=== PATIENT | female | born 1980 | race Caucasian/White ===

== ENCOUNTER 2020-10-17 16:08 | Emergency (ER) | payer OTHER ==
[~2020-10-17] VITALS: Ht 157.5 cm; Wt 52.2 kg
[~2020-10-17 16:08] MED LIST: ORPH100T PO
== END 2020-10-17 19:58 | disposition home or self-care (01) ==
LOC: ER 16:08
DX: M79.18 Myalgia, other site (principal); R51.9 Headache, unspecified

== ENCOUNTER 2024-11-26 14:56 | Emergency (ER) | payer OTHER ==
[~2024-11-26] VITALS: Ht 157.5 cm; Wt 47.6 kg
[2024-11-26] MEDS ORDERED: KETOROLAC TROMETHAMINE 30 MG VIAL IM ONE (16:15)
[2024-11-26] MEDS ORDERED: DEXAMETHASONE SODIUM PHOSPHATE 4 MG/ML VIAL IM ONE (16:30)
== END 2024-11-27 18:23 | disposition home or self-care (01) ==
LOC: ER 14:56
DX: M85.80 Other specified disorders of bone density and structure, unspecified site (principal); M45.9 Ankylosing spondylitis of unspecified sites in spine; N94.6 Dysmenorrhea, unspecified; Z91.018 Allergy to other foods